=== PATIENT | female | born 1995 | race Caucasian/White ===

== ENCOUNTER 2017-11-16 16:34 | Emergency (ER) | payer BC ==
[2017-11-16 16:48] VITALS: BP 113/65
[2017-11-16] MEDS ORDERED: Tetracaine 0.5% OPTH.SOL 4 ML* 1 DROP BTL LEFT EYE ONE (16:59)
[2017-11-16] MEDS ORDERED: Fluorescein Sodium TOPICAL* 1 MG TEST OPHTHALMIC ONE (17:05)
[2017-11-16] MEDS ORDERED: Fluorescein Sod TOPICAL 0.6* 0.6 MG TEST OPHTHALMIC ONE (17:09)
--- NOTE | 2017-11-16 17:30 | UC ---
Eye Complaint HPI - HPI Summary HPI Summary: Patient presents with complaints of right eye irritation that began last night after she took out her contact lense. She states if feels like there is still something under the center of her upper eye lid. She denies any visual disturbances, blurred vision or significant eye pain. She states she noticed more when she blinks. - History of Current Complaint Hx Obtained From: Patient Hx Last Menstrual Period: 10/20/16 Onset/Duration: Sudden Onset, Lasting Days Timing: Intermittent Episode Lasting Severity Initially: Mild Severity Currently: Mild Pain Intensity: 3 Location of Injury: Eye Lid (upper) Character: Foreign Body Sensation Aggravating Factor(s): Blinking Associated Signs And Symptoms: Positive: Negative - Risk Factors Penetrating Injury Risk Factor: Negative Acute Glaucoma Risk Factors: Negative <Sheeba Odom - Last Filed: 11/16/17 17:41> <Ivana Henry - Last Filed: 11/16/17 17:51> - History of Current Complaint Chief Complaint: UCEye Stated Complaint: EYE IRRITATION Time Seen by Provider: 11/16/17 16:56 PMH/Surg Hx/FS Hx/Imm Hx Previously Healthy: Yes - Surgical History Surgical History: Yes Surgery Procedure, Year, and Place: may 2013 right ankle. may 2013 extrenal fixator right leg. may 2014 screw removed right ankle. april 2016 right ankle fusions. aug 2016 debridment bone right ankle - Family History Known Family History: Positive: None - Social History Occupation: Student Lives: Alone Alcohol Use: Weekly Substance Use Type: Marijuana Smoking Status (MU): Never Smoked Tobacco <Sheeba Odom - Last Filed: 11/16/17 17:41> Review of Systems Constitutional: Negative Skin: Negative Eyes: Eye Redness ENT: Negative Respiratory: Negative Cardiovascular: Negative Gastrointestinal: Negative Genitourinary: Negative Motor: Negative Neurovascular: Negative Musculoskeletal: Negative Neurological: Negative Psychological: Negative Is Patient Immunocompromised?: No All Other Systems Reviewed And Are Negative: Yes <Sheeba Odom - Last Filed: 11/16/17 17:41> Physical Exam Triage Information Reviewed: Yes Appearance: Well-Appearing Vital Signs: Initial Vital Signs Temp 98.3 F 11/16/17 16:42 Pulse 84 11/16/17 16:42 Resp 16 11/16/17 16:42 BP 113/65 11/16/17 16:42 Pulse Ox 100 11/16/17 16:42 Vital Signs Reviewed: Yes Eyes: Positive: Conjunctiva Clear, Other: - abrashion noted below the iris 5-7 oclock. ENT Exam: Normal Neck exam: Normal Neck: Positive: 1 Respiratory Exam: Normal Cardiovascular Exam: Normal Abdominal Exam: Normal Musculoskeletal Exam: Normal Neurological Exam: Normal Psychological Exam: Normal Skin Exam: Normal <Sheeba Odom - Last Filed: 11/16/17 17:41> Vital Signs: Initial Vital Signs Temp 98.3 F 11/16/17 16:42 Pulse 84 11/16/17 16:42 Resp 16 11/16/17 16:42 BP 113/65 11/16/17 16:42 Pulse Ox 100 11/16/17 16:42 <Ivana Henry - Last Filed: 11/16/17 17:51> Eye Complaint Course/Dx - Course Course Of Treatment: Patient presents with corneal abrashion from contact lenses that was identified with cardenas lamp. She was given erthromycin opth ointment and told to follow up with Dr. Braxton in two days if her symptoms have not completly resolved. - Differential Dx/Diagnosis Differential Diagnosis/HQI/PQRI: Corneal Abrasion Provider Diagnoses: corneal abrasion <Sheeba Odom - Last Filed: 11/16/17 17:41> Discharge <Sheeba Odom - Last Filed: 11/16/17 17:41> <Ivana Henry - Last Filed: 11/16/17 17:51> - Discharge Plan Condition: Stable Disposition: HOME Prescriptions: Erythromycin OPTH OINT* [Erythromycin 0.5% OPTH OINT*] 1 applic LEFT EYE TID #1 ophth.oint Patient Education Materials: Corneal Abrasion (DC) Referrals: No Primary Care Phys,NOPCP [Primary Care Provider] - Robert Braxton MD [Medical Doctor] - Additional Instructions: If you eye does not respond in 48 hours follow up with Dr[address] Braxton. Attestation Statement User Type: Provider - I was available for consult. This patient was seen by the ELAINE. The patient was not presented to, seen by, or examined by me. -Meka <Ivana Henry - Last Filed: 11/16/17 17:51>
[2017-11-16] MEDS ORDERED: Erythromycin OPTH OINT* APPLIC OINT LEFT EYE ONE (17:43)
[2017-11-16] MEDS ORDERED: Erythromycin OPTH OINT* APPLIC OINT LEFT EYE SCH (21:00)
== END 2017-11-16 17:50 | disposition home or self-care (01) ==
LOC: UCEAST 16:34
DX: H18.821 Corneal disorder due to contact lens, right eye (principal); F12.90 Cannabis use, unspecified, uncomplicated
CPT/HCPCS: 99202; A9270-GY; G0463